=== PATIENT | male | born 1960 ===

== ENCOUNTER 2020-04-25 08:31 | Day surgery (SDC) | payer OTHER | END 2020-04-25 13:50 | disposition home or self-care (01) | LOC: AMB-ENDOS 08:31 → ADM 09:00 → AMB-ENDOS 13:50 | PROVIDERS: ATTEND Colon & Rectal Surgery | DX: K62.89 Other specified diseases of anus and rectum (principal); K64.0 First degree hemorrhoids; Z20.828 Contact with and (suspected) exposure to other viral communicable diseases ==